=== PATIENT | male | born 1950 | race Caucasian/White ===

== ENCOUNTER 2020-11-02 20:38 | Inpatient (IN) | payer MEDICARE, BC ==
[~2020-11-02] VITALS: Ht 167.6 cm; Wt 69.1 kg
--- NOTE | 2020-11-02 20:40 | NUR ---
Requested security to standby for patient safety due to patient not wanting to stay in bed and anxious and confused. Called Cottage Master for a sitter.
[2020-11-02] MEDS ORDERED: ZIPRASIDONE MESYLATE 20 MG VIAL IM ONE ×3 (21:45→22:01)
--- NOTE | 2020-11-02 22:00 | NUR ---
ERMD will not medically clear the patient, patient needs to be admitted to the medical floor for further observation. Raphael Perez NP agrees with plan for admission rather to MHU at this point in time.
[2020-11-02] MEDS ORDERED: ONDANSETRON 4 MG/2 ML VIAL IV PRN (22:45)
[2020-11-02] MEDS ORDERED: MAGNESIUM HYDROXIDE 30 ML LIQUID UDC PO PRN (22:45)
[2020-11-02] MEDS ORDERED: HYDROCODONE/APAP 5-325MG TABLET PO PRN (22:45)
[2020-11-02] MEDS ORDERED: ACETAMINOPHEN 325 MG TABLET PO PRN (22:45)
--- NOTE | 2020-11-02 23:25 | NUR ---
Patient transported to CT in stable condition.
--- NOTE | 2020-11-03 00:40 | NUR ---
Report given to LAUREL Owusu
[2020-11-03 00:51] LABS: BASOPHILS # (AUTO) 0.1 K/uL (0.0-8.0); EOSINOPHILS # (AUTO) 0.1 K/uL (0.0-0.7); EOSINOPHILS % (AUTO) 1.3 % (0.0-7.0); HEMATOCRIT 43.5 % (36.7-47.1); HEMOGLOBIN 14.9 g/dL (12.5-16.3); LYMPHOCYTES # (AUTO) 1.4 K/uL (20.0-40.0); LYMPHOCYTES % (AUTO) 22.6 % (20.5-51.5); MEAN CORPUSCULAR HEMOGLOBIN 32.4 uug (23.8-33.4); MEAN CORPUSCULAR HGB CONC 34 g/dL (32.5-36.3); MEAN CORPUSCULAR VOLUME 94.5 fL (73.0-96.2); MONOCYTES # (AUTO) 0.5 K/uL (2.0-10.0); NEUTROPHILS % (AUTO) 66.1 % (38.5-71.5); PLATELET COUNT (AUTO) 102 K/uL (152-348); WHITE BLOOD COUNT (AUTO) 6.1 K/uL (3.6-10.2)
[2020-11-03 00:59] LABS: CREATININE 1.1 mg/dL (0.6-1.3); POTASSIUM 4.1 mmol/L (3.5-5.1)
[2020-11-03 01:07] LABS: BILIRUBIN,DIRECT 0.2 mg/dL (0.0-0.2); BILIRUBIN,TOTAL 0.8 mg/dL (0.2-1.0); TOTAL PROTEIN, SERUM 7.6 g/dL (6.4-8.2)
--- NOTE | 2020-11-03 01:10 | NUR ---
Patient transported to TELE in stable condition.
[2020-11-03 02:09] VITALS: BP 129/72
[2020-11-03] MEDS ORDERED: HALOPERIDOL LACTATE 5 MG/1 ML VIAL IM ONE (02:15)
--- NOTE | 2020-11-03 03:35 | NUR ---
Pt arrived on unit at 0100H. Pt is very confused and does not know where he is at this time. Denies pain or SOB. Placed on Tele and is SR. Pt became very agitated and tried to leave. Also attempted to hit staff members, deescalation and redirection attempted and patient continued to be increasingly agitated. Remigio Coon was called at 0135H. Randall Joseph was notified at 0145H. Orders to give Haldol 10mg IM X one and to call crisis team for evaluation. Crisis team was called at 0200H and message was left. Pt was provided with medication education. Administered Haldol 10mg IM at 0208H without resistance and security at bedside. Patient was monitored in the room for 25 min and tolerated medication well and is now resting in bed. Pt is SR on monitor at 65 BPM. No SOB or distress noted. Sitter at bedside monitoring for safety. Crisis team returned call and stated that they will perform an evaluation in the morning. Will endorse to oncoming staff.
[2020-11-03 06:40] LABS: BASOPHILS # (AUTO) 0.1 K/uL (0.0-8.0); BASOPHILS % (AUTO) 2.4 % (0.0-2.0); EOSINOPHILS # (AUTO) 0.1 K/uL (0.0-0.7); EOSINOPHILS % (AUTO) 1.6 % (0.0-7.0); HEMATOCRIT 40.1 % (36.7-47.1); HEMOGLOBIN 13.7 g/dL (12.5-16.3); LYMPHOCYTES % (AUTO) 21.4 % (20.5-51.5); MEAN CORPUSCULAR HEMOGLOBIN 32.2 uug (23.8-33.4); MEAN CORPUSCULAR HGB CONC 34 g/dL (32.5-36.3); MEAN CORPUSCULAR VOLUME 94.5 fL (73.0-96.2); MONOCYTES # (AUTO) 0.4 K/uL (2.0-10.0); MONOCYTES % (AUTO) 8.1 % (0.0-11.0); NEUTROPHILS % (AUTO) 66.5 % (38.5-71.5); RED BLOOD CELL COUNT(AUTO) 4.25 MIL/uL (4.06-5.63)
[2020-11-03 07:02] LABS: BILIRUBIN,TOTAL 0.8 mg/dL (0.2-1.0); CREATININE 1.1 mg/dL (0.6-1.3); MAGNESIUM 1.9 mg/dL (1.8-2.4); PHOSPHOROUS 4.2 mg/dL (2.5-4.9); POTASSIUM 4.5 mmol/L (3.5-5.1); TOTAL PROTEIN, SERUM 6.9 g/dL (6.4-8.2)
[2020-11-03 07:12] LABS: PLATELET COUNT (AUTO) 174 K/uL (152-348); WHITE BLOOD COUNT (AUTO) 4.5 K/uL (3.6-10.2)
[2020-11-03 07:19] LABS: THYROID STIMULATING HORMONE 2.56 mIU/mL (0.358-3.740)
[2020-11-03 08:00] VITALS: BP 131/78
--- NOTE | 2020-11-03 08:00 | NUR ---
RECEIVED PATIENT IN ROOM PACING BACK AND FORTH ALERT TO SELF ONLY BUT IS CONFUSED AND DISORIENTED HAS A ONE ON ONE SITTER FOR SAFETY ALL NEEDS ANTICIPATED AND SATISFIED AWAITING FOR THE CRISIS TEAM AT THIS TIME.
--- NOTE | 2020-11-03 10:12 | NUR ---
PSYCH CONSULT ORDERED PER LEANN CALLED AND NOTIFIED DR SANZ VIA VOICE MAIL AND SENT A FACE SHEET TO U
[2020-11-03 13:17] VITALS: BP 116/71
--- NOTE | 2020-11-03 14:19 | NUR ---
PATIENT SEEN AND EXAMINED BY DR THACKER WITH NEW ORDERS AND NOTED
--- NOTE | 2020-11-03 14:50 | NUR ---
PATIENT IS VERY CONFUSED AND DISORIENTED PICKED UP BY CHAIR TO RADIOLOGY FOR CT HEAD ORDERED
--- NOTE | 2020-11-03 15:20 | NUR ---
PATIENT IS VERY AGITATED CONFUSED DISORIENTED PACING REFUSING TO GO BACK TO HIS ROOM UNABLE TO BE REDIRECTED VERY DISORGANISED AND UNMANAGEABLE CALLED DR SANZ LEFT A MESSAGE CALLED LEANN AND GOT AN ORDER FOR ZYPREXA ONE TIME GIVEN ORDERED WILL CONTINUE TO OBSERVE.
--- NOTE | 2020-11-03 15:47 | NUR ---
Wet Finisher Wool consultation requested to assist with identifying next of kin. Patient is a 70 year old male, who came to the ED on 11/03/20. Patient is from [facility]. LEANDER contacted Karen, Printing Engineer at [facility], [facility] [address], [place] [address], tel # ; pierre # . Karen stated that both the patient and patient's moved into [facility] about 10 days ago. Per Karen's report, patient and were previously living at their private home, and had a long history of alcohol abuse, drinking 3 bottles of wine per day, sometimes other alcohol too. Karen stated that patient has not been able to drink alcohol for the past 10 days since being admitted to [facility]. Per Karen, patient also has a dx of Dementia. Per Karen, patient became very aggressive at [facility], kicking, screaming, throwing chairs, biting, wanting to harm others, grabbing the fire extinguisher. Karen stated that after 45 minutes of not being able to control patient's behavior, the police were called. Patient's next of kin, POA, is patient's step-daughter Rosalinda Llanos, . Karen emailed patient's healthcare directive to this SW, which identified Rosalinda as the POA. LEANDER called patient's step-daughter Rosalinda and spoke with her. Rosalinda stated that patient has been showing behavioral changes related to Dementia over the past year, some more aggressive and others. Rosalinda visited the patient and 2-3 x week, and provided them with assistance, as needed. Rosalinda stated that patient has a long history of alcohol use, drinking a bottle of wine per day, along with scotch. However, Rosalinda stated that over the last couple of months, patient had cut back on drinking alcohol and was having 2-3 glasses of wine per day. Patient is a retired civil attorney. LEANDER spoke with patient's attending physician Michael about above. LEANDER filed patient's healthcare directive in patient's chart. Addendum: 11/03/20 at 1634 by LORENE TABOR Per Karen at [facility], they are willing to take the patient back at [facility] after hospitalization.
--- NOTE | 2020-11-03 16:34 | NUR ---
LEANDER spoke with LAUREL Swanson, and informed her of patient's history that this SW had gathered from patient's step-daughter Rosalinda and [place] Meat Apprentice Karen. LEANDER informed Kiki that Rosalinda is POA. Kiki stated that she would contact patient's daughter Rosalinda to provide updates on the patient.
[2020-11-03] MEDS ORDERED: OLANZAPINE 10 MG VIAL IM ONE (17:15)
--- NOTE | 2020-11-03 17:23 | NUR ---
ERROR IN CHARTINE THE ZYPREXA WAS GIVEN AT 1720
--- NOTE | 2020-11-03 18:00 | NUR ---
CALLED AND SPOKE WITH PATIENTS GRAND DAUGHTER YUE REQUESTED BY LORENE THE ANTENNA RIGGER AND NOTIFIED HER OF PATIENTS CONDITION HE REMAINS CONFUSED DIFFICULT TO REDIRECT HALLUCINATING LOOKING FOR HIS WILL NOT SIT STILL VERT IRRITABLE HAS A ONE ON ONE SITTER FOR SAFETY WILL CONTINUE TO OBSERVE AND PROVIDE SAFE AND THERAPEUTIC ENVIRONMENT AT ALL TIMES.
--- NOTE | 2020-11-03 18:44 | NUR ---
FOLLOW UP CALL TO DR SANZ PSYCH LEFT HIM A MESSAGE ON HIS VOICE MAIL RE PATIENT IS STILL AGITATED AND DIFFICULT TO REDIRECT ZYPREXA NOT EFFECTIVE ORDERED AWAITING FOR RETURN CALL
[2020-11-04 06:21] VITALS: BP 123/62
[2020-11-04 06:27] LABS: BASOPHILS # (AUTO) 0.1 K/uL (0.0-8.0); BASOPHILS % (AUTO) 1.2 % (0.0-2.0); EOSINOPHILS # (AUTO) 0.1 K/uL (0.0-0.7); EOSINOPHILS % (AUTO) 1.6 % (0.0-7.0); HEMATOCRIT 42.5 % (36.7-47.1); HEMOGLOBIN 14.2 g/dL (12.5-16.3); LYMPHOCYTES # (AUTO) 1.6 K/uL (20.0-40.0); LYMPHOCYTES % (AUTO) 32.8 % (20.5-51.5); MEAN CORPUSCULAR HEMOGLOBIN 31.7 uug (23.8-33.4); MEAN CORPUSCULAR HGB CONC 34 g/dL (32.5-36.3); MEAN CORPUSCULAR VOLUME 94.6 fL (73.0-96.2); MONOCYTES # (AUTO) 0.4 K/uL (2.0-10.0); NEUTROPHILS # (AUTO) 2.7 K/uL (1.8-8.9); NEUTROPHILS % (AUTO) 55.4 % (38.5-71.5); PLATELET COUNT (AUTO) 184 K/uL (152-348); RED BLOOD CELL COUNT(AUTO) 4.49 MIL/uL (4.06-5.63)
--- NOTE | 2020-11-04 06:28 | NUR ---
Pt slept intermittently throughout the night. Denies pain or SOB. Does not appear to be in distress at this time. Pt refused vitals at 0800H on 11/03/20 and at 0000H on 11/04/20. Pt let sitter take vitals this morning, all WNL. Pt refused tele monitor. No other issues or concerns at this time, will endorse to day shift.
[2020-11-04 06:40] LABS: CREATININE 1.1 mg/dL (0.6-1.3); POTASSIUM 3.8 mmol/L (3.5-5.1)
[2020-11-04 07:59] VITALS: BP 104/63
--- NOTE | 2020-11-04 08:00 | NUR ---
AWAKE ALERT AND VERBALLY RESPONSIVE BUT CONFUSED X3 SITTER AT BEDSIDE
[2020-11-04] MEDS: OLANZAPINE ZYDIS 5 MG TAB.RAPDIS PO SCH ×2 (08:21→20:26)
[2020-11-04] MEDS: DIVALPROEX SPRINKLE 125 MG CAP.SPRINK PO SCH ×3 (08:21→17:31)
[2020-11-04 11:28] VITALS: BP 117/75
--- NOTE | 2020-11-04 13:10 | NUR ---
AWAITING EEG PROCEDURE, REMAINS CONFUSED AND DISORIENTED, CONTINUE 1:1 SITTER FOR SAFETY
[2020-11-04 14:24] VITALS: BP 123/73
[2020-11-04 19:59] VITALS: BP 123/69
[2020-11-04 20:00] VITALS: BP 111/67
[2020-11-05] VITALS: BP 135/72
[2020-11-05 04:00] VITALS: BP 132/69
--- NOTE | 2020-11-05 06:34 | NUR ---
Pt did not sleep much at night. Kept pacing around room. Urged patient to try to rest, finally got him in bed. Denies pain or SOB. Pt very confused and unable to be redirected. Sitter at bedside. Pt is not combative or agitated, very calm. No other issues or concerns at this time, will endorse to day shift.
[2020-11-05 06:43] LABS: BASOPHILS # (AUTO) 0.1 K/uL (0.0-8.0); EOSINOPHILS # (AUTO) 0.1 K/uL (0.0-0.7); EOSINOPHILS % (AUTO) 1.4 % (0.0-7.0); HEMATOCRIT 38.9 % (36.7-47.1); HEMOGLOBIN 13.1 g/dL (12.5-16.3); LYMPHOCYTES # (AUTO) 1.4 K/uL (20.0-40.0); LYMPHOCYTES % (AUTO) 25.6 % (20.5-51.5); MEAN CORPUSCULAR HEMOGLOBIN 31.7 uug (23.8-33.4); MEAN CORPUSCULAR HGB CONC 34 g/dL (32.5-36.3); MEAN CORPUSCULAR VOLUME 94.2 fL (73.0-96.2); MONOCYTES # (AUTO) 0.5 K/uL (2.0-10.0); MONOCYTES % (AUTO) 9.6 % (0.0-11.0); NEUTROPHILS # (AUTO) 3.4 K/uL (1.8-8.9); NEUTROPHILS % (AUTO) 62.4 % (38.5-71.5); PLATELET COUNT (AUTO) 159 K/uL (152-348); RED BLOOD CELL COUNT(AUTO) 4.13 MIL/uL (4.06-5.63); WHITE BLOOD COUNT (AUTO) 5.4 K/uL (3.6-10.2)
[2020-11-05 07:28] LABS: MAGNESIUM 1.9 mg/dL (1.8-2.4)
--- NOTE | 2020-11-05 07:45 | NUR ---
Patient report received from shift commander. Pt is seen walking around with CAN COVERER. Alert and oriented x 1 to person. Patient confused about place and time. Pt is sinus rhythm on TELE. Room air, no shortness of breath reported. Skin intact. Patient continent for GI/. Able to ambulate. Patient has an IV on Right hand 20g saline lock. Patient is 1 to 1. Bed in low and locked position. Safety precautions in place. Call light within reach.
[2020-11-05] MEDS: OLANZAPINE ZYDIS 5 MG TAB.RAPDIS PO SCH ×2 (08:02→20:26)
[2020-11-05] MEDS: DIVALPROEX SPRINKLE 125 MG CAP.SPRINK PO SCH ×3 (08:02→17:49)
[2020-11-05 11:16] VITALS: BP 110/70
[2020-11-05 16:01] VITALS: BP 123/66
[2020-11-05] MEDS ORDERED: OLANZAPINE 10 MG VIAL IM ONE (16:45)
[2020-11-05 20:00] VITALS: BP 111/67
--- NOTE | 2020-11-05 21:50 | NUR ---
Received patient in their room agitated and yelling at staff. Patient is confused and alert only to self. Pt on RA, no s/s of SOB. Patient compliant with medications and appears to be more calm walking around the halls with standby assistance, steady gait. 1:1 sitter at bedside for safety. Patient to be discharged from Telemetry and admitted to Mental health unit. Safety measures in place.
== END 2020-11-05 23:12 | DRG 85 ==
LOC: ER 20:44 → TELE3 11-03 00:46
PROVIDERS: ADMIT Nurse Practitioner Acute Care; ATTEND Nurse Practitioner Family
DX: S06.5X0A Traumatic subdural hemorrhage without loss of consciousness, initial encounter (principal); G93.41 Metabolic encephalopathy; D68.69 Other thrombophilia; F03.91 Unspecified dementia, unspecified severity, with behavioral disturbance; Z74.09 Other reduced mobility; F39 Unspecified mood [affective] disorder; R73.9 Hyperglycemia, unspecified; F29 Unspecified psychosis not due to a substance or known physiological condition; W19.XXXA Unspecified fall, initial encounter; Y93.9 Activity, unspecified; Y92.89 Other specified places as the place of occurrence of the external cause; R40.2142 Coma scale, eyes open, spontaneous, at arrival to emergency department; R40.2362 Coma scale, best motor response, obeys commands, at arrival to emergency department; R40.2242 Coma scale, best verbal response, confused conversation, at arrival to emergency department
CPT/HCPCS: 36415; 70030-TC; 70450; 71045; 83735; 84100; 84443; 85025; 85730; 93005; 95819; A4663; G0378; J1630; J2358; J3486

== ENCOUNTER 2020-11-05 23:25 | Inpatient (IN) | payer MEDICARE, BC ==
[~2020-11-05] VITALS: Ht 165.1 cm; Wt 68.0 kg
[2020-11-05 20:00] VITALS: BP 111/67
[2020-11-06] MEDS ORDERED: ACETAMINOPHEN 325 MG TABLET PO PRN
[2020-11-06] MEDS ORDERED: MAGNESIUM HYDROXIDE 30 ML LIQUID UDC PO PRN
[2020-11-06] MEDS ORDERED: MAG HYDROX/AL HYDROX/SIMETH 30 ML LIQUID UDC PO PRN
--- NOTE | 2020-11-06 06:53 | NUR ---
Received patient from telemetry unit to transfer to [facility]. Patient in room with 1:1 sitter at bedside. Patient slept 7 hours last night. Agitated and combative when redirected. Patient remains confused and disoriented. Refused vitals and care provided. Q15 min safety checks in place. Safety measures in place and will endorse to oncoming shift.
--- NOTE | 2020-11-06 09:22 | NUR ---
Firearms Report: Burner Technician completed and submitted a [employer] firearms report for 5150 grave disability certification. A copy of report has been placed in patient chart.
--- NOTE | 2020-11-06 11:50 | NUR ---
[facility] Contact: Patient currently resides at [facility] [address],([phone]). This SW contactd admin Karen ([phone]) to discuss if patient can come back upon discharge. Per admin Karen, she stated that patient is welcomed back upon discharge and they will provide transportation.
--- NOTE | 2020-11-06 11:50 | NUR ---
SW Initial Discharge Note: Patient currently resides at [facility] [address],([phone]). This SW contactd admin Karen ([phone]) to discuss if patient can come back upon discharge. Per admin Karen, she stated that patient is welcomed back upon discharge and they will provide transportation. This SW contacted patient's stepdaughter Rosalinda ([phone]) to discuss treatment and discharge plan, however, she was unavailable and this SW left a voicemail. This SW will work with the treatment team, MD, and family to help coordinate proper discharge.
--- NOTE | 2020-11-06 11:51 | NUR ---
SW Family Contact: This SW contacted patient's stepdaughter Rosalinda ([phone]) to discuss treatment and discharge plan, however, she was unavailable.
--- NOTE | 2020-11-06 11:52 | NUR ---
Substance Abuse Intervention: Patient was provided with a brief substance abuse intervention and referred to [facility] ([phone]), [facility] ([phone]), and [facility] ([phone]).
--- NOTE | 2020-11-06 13:36 | NUR ---
SW Family Contact: This SW spoke with patient's DPOA Rosalinda ([phone]) to gather collateral and discuss treatment/discharge plan. She stated that she is the DPOA and requested for this SW to contact [facility] to fax DPOA documents. Per Rosalinda, she stated that she would want patient back to [facility] upon discharge.
--- NOTE | 2020-11-06 13:37 | NUR ---
[facility] Care [facility] Contact: This SW contacted Admin Karen ([phone]) [facility] and left a voicemail to fax DPOA paperworks to this SW.
--- NOTE | 2020-11-06 13:42 | NUR ---
Individual Therapy: linen room worker met with patient for brief counseling to help address patient's presenting problem disorganized thought content. Patient appeared disorganized, disoriented, and confused. He did not know why he was brought to the hospital. Patient unable to have a meaningful conversation due to confusion. SW unable to conduct therapy at this time.
--- NOTE | 2020-11-06 14:34 | NUR ---
Patient transferred from [facility] to U. Patient AOx1. On room air. no signs of acute distress. Chart and belongings transferred with patient to MHU. Patient report given to MHU RN for continuity of care.
--- NOTE | 2020-11-06 14:40 | NUR ---
Pt recieved from 3rd floor OF via wheelchair. Pt is oriented to self only. Pt's belongings and valuables were accounted, contraband locked. No distress noted.
[2020-11-06 16:00] VITALS: BP 105/63
[2020-11-06 20:37] VITALS: BP 112/62
[2020-11-06] MEDS: RIVASTIGMINE TARTRATE 1.5 MG CAPSULE PO SCH (20:55)
[2020-11-06] MEDS: DIVALPROEX 250 MG TABLET.DR PO SCH (20:55)
[2020-11-06] MEDS: LORAZEPAM 1 MG TABLET PO PRN (20:55)
--- NOTE | 2020-11-06 22:12 | NUR ---
RECEIVED PATIENT IN HIS ROOM CONFUSED, DISORIENTED AND OCCASIONALLY PICKING HIS ROOM MATES SHIRTS AND OTHER STUFF FROM OFF HIS TABLE. MOOD IS LABILE AND COULD NOT ENGAGE IN ANY MEANINGFUL CONVERSATION. HE WAS HOWEVER COMPLIANT WITH MEDICATIONS AND CARE. VISUAL CHECKS MADE ON HIM FOR SAFETY. WILL CONTINUE TO MONITOR.
--- NOTE | 2020-11-07 06:58 | NUR ---
SLEPT FOR 7:30 HOURS.
[2020-11-07 07:30] VITALS: BP 124/75
--- NOTE | 2020-11-07 08:18 | NUR ---
[facility] Contact: This SW contacted Admin Karen ([phone]) [facility] faxed this SW daughter's DPOA paperworks and this SW placed it in patient's chart.
[2020-11-07] MEDS: RIVASTIGMINE TARTRATE 1.5 MG CAPSULE PO SCH ×2 (08:27→20:05)
[2020-11-07] MEDS: DIVALPROEX 250 MG TABLET.DR PO SCH ×2 (08:27→20:05)
--- NOTE | 2020-11-07 13:12 | NUR ---
Individual Therapy: automotive tire worker met with patient for brief counseling to help address patient's presenting problem disorganized thought content. Patient appeared confused and SW unable to conduct therapy at this time.
[2020-11-07 16:46] VITALS: BP 105/67
[2020-11-07 20:25] VITALS: BP 127/71
[2020-11-08] MEDS: TEMAZEPAM 7.5 MG CAPSULE PO PRN (00:45)
--- NOTE | 2020-11-08 05:15 | NUR ---
Pt asleep at this time, no s/sx of distress. No c/o pain. Restoril PRN administered at 0045 for difficulty sleeping--walking back and forth in his room and in the hallway. Pt fell asleep about 1.5 hrs later. Encouraged to stay in bed and redirected as needed. Safety precautions in place. Frequent rounds done to ensure safety.
[2020-11-08 07:30] VITALS: BP 116/77
[2020-11-08] MEDS: RIVASTIGMINE TARTRATE 1.5 MG CAPSULE PO SCH ×2 (09:01→20:44)
[2020-11-08] MEDS: DIVALPROEX 250 MG TABLET.DR PO SCH ×2 (09:01→20:43)
[2020-11-08] MEDS: LORAZEPAM 1 MG TABLET PO PRN (13:00)
[2020-11-08 16:00] VITALS: BP 139/72
[2020-11-09] MEDS: TEMAZEPAM 7.5 MG CAPSULE PO PRN (02:13)
--- NOTE | 2020-11-09 06:29 | NUR ---
Received patient pacing up and down the hallway, then standing at the nurses station, totally lost and confused. Despite multiple attempts to provide reorientation, the patient was unable to understand. PM medications given without difficulty , and he was somewhat redirectable at times. This patient was restless during the night and had 5.15 hours of interrupted sleep. No hostility or combativeness noted during the shift, and no behavior escalation. Continuing to provide assistance when needed and to monitor for safety.
[2020-11-09 07:30] VITALS: BP 120/76
[2020-11-09] MEDS: DIVALPROEX 250 MG TABLET.DR PO SCH ×2 (08:40→20:09)
[2020-11-09] MEDS: RIVASTIGMINE TARTRATE 1.5 MG CAPSULE PO SCH ×2 (08:40→20:09)
[2020-11-09] MEDS: LORAZEPAM 1 MG TABLET PO PRN ×2 (15:03→23:33)
[2020-11-09 16:00] VITALS: BP 101/63
[2020-11-09 20:17] VITALS: BP 116/56
[2020-11-09] MEDS: ATORVASTATIN 10 MG TABLET PO SCH (20:40)
--- NOTE | 2020-11-10 06:33 | NUR ---
GPS:PATIENT REMAIN IN CONFUSED, DISORIENTED AND OCCASIONALLY PICKING TRASH BAG AND OTHER STUFF FROM HIS ROOM. MOOD IS LABILE AND COULD NOT ENGAGE IN ANY MEANINGFUL CONVERSATION. HE WAS HOWEVER COMPLIANT WITH MEDICATIONS AND CARE.TOOK SHOWER THIS MORNING. VISUAL CHECKS MADE ON HIM FOR SAFETY. SLEPT 4.30 HRS THROUGH THE NIGHT.WILL CONTINUE TO MONITOR.
[2020-11-10 07:30] VITALS: BP 131/67
[2020-11-10 07:32] LABS: BASOPHILS # (AUTO) 0.1 K/uL (0.0-8.0); BASOPHILS % (AUTO) 1.1 % (0.0-2.0); EOSINOPHILS # (AUTO) 0.1 K/uL (0.0-0.7); EOSINOPHILS % (AUTO) 1.4 % (0.0-7.0); HEMATOCRIT 37.7 % (36.7-47.1); HEMOGLOBIN 12.9 g/dL (12.5-16.3); LYMPHOCYTES # (AUTO) 1.1 K/uL (20.0-40.0); LYMPHOCYTES % (AUTO) 23.8 % (20.5-51.5); MEAN CORPUSCULAR HEMOGLOBIN 32.3 uug (23.8-33.4); MEAN CORPUSCULAR HGB CONC 34 g/dL (32.5-36.3); MEAN CORPUSCULAR VOLUME 94.5 fL (73.0-96.2); MONOCYTES # (AUTO) 0.4 K/uL (2.0-10.0); MONOCYTES % (AUTO) 8.9 % (0.0-11.0); NEUTROPHILS # (AUTO) 3.1 K/uL (1.8-8.9); NEUTROPHILS % (AUTO) 64.8 % (38.5-71.5); PLATELET COUNT (AUTO) 182 K/uL (152-348); RED BLOOD CELL COUNT(AUTO) 3.99 MIL/uL (4.06-5.63); WHITE BLOOD COUNT (AUTO) 4.8 K/uL (3.6-10.2)
[2020-11-10 08:13] LABS: BILIRUBIN,TOTAL 0.5 mg/dL (0.2-1.0); CREATININE 1.3 mg/dL (0.6-1.3); MAGNESIUM 2.1 mg/dL (1.8-2.4); PHOSPHOROUS 3.8 mg/dL (2.5-4.9); POTASSIUM 4.6 mmol/L (3.5-5.1)
[2020-11-10] MEDS: RIVASTIGMINE TARTRATE 1.5 MG CAPSULE PO SCH ×2 (08:20→20:36)
[2020-11-10] MEDS: DIVALPROEX 250 MG TABLET.DR PO SCH ×2 (08:20→20:36)
--- NOTE | 2020-11-10 12:57 | NUR ---
SW Family: This SW spoke with patient's daughter Rosalinda GABRIEL ([phone]) and wanted update on patient's status. She requested for this SW to contact doctor Garrett to contact her. This SW notified doctor Garrett.
[2020-11-10] MEDS: LORAZEPAM 1 MG TABLET PO PRN ×2 (13:06→17:29)
--- NOTE | 2020-11-10 15:43 | NUR ---
Individual Therapy: facility worker met with patient for brief counseling to help address patient's presenting problem disorganized thought content. Patient appeared confused and disorganized. Patient was unable to have a proper conversation due to confusion. Patient was uncooperative and was giving this SW his blanket. SW unable to conduct therapy at this time.
[2020-11-10 16:02] VITALS: BP 141/72
[2020-11-10 19:55] VITALS: BP 140/82
[2020-11-10] MEDS: ATORVASTATIN 10 MG TABLET PO SCH (20:36)
[2020-11-10] MEDS: QUETIAPINE FUMARATE 25 MG TABLET PO SCH (21:51)
[2020-11-11] MEDS: LORAZEPAM 1 MG TABLET PO PRN (05:14)
--- NOTE | 2020-11-11 06:07 | NUR ---
GPS: Pt.slept for 6.15 last night. Remains confused,disoriented and disorganized. Needs frequent re-direction from staff. Safe environment provided. Ativan 1 mg given PO earlier as ordered for increased anxiety. Safety checks done Q15 minutes as scheduled.
[2020-11-11 07:05] LABS: BASOPHILS % (AUTO) 1.1 % (0.0-2.0); EOSINOPHILS # (AUTO) 0.1 K/uL (0.0-0.7); EOSINOPHILS % (AUTO) 2.3 % (0.0-7.0); HEMATOCRIT 40.4 % (36.7-47.1); HEMOGLOBIN 13.8 g/dL (12.5-16.3); LYMPHOCYTES # (AUTO) 1.3 K/uL (20.0-40.0); LYMPHOCYTES % (AUTO) 30.6 % (20.5-51.5); MEAN CORPUSCULAR HEMOGLOBIN 32.4 uug (23.8-33.4); MEAN CORPUSCULAR HGB CONC 34 g/dL (32.5-36.3); MEAN CORPUSCULAR VOLUME 94.9 fL (73.0-96.2); MONOCYTES # (AUTO) 0.4 K/uL (2.0-10.0); MONOCYTES % (AUTO) 10.6 % (0.0-11.0); NEUTROPHILS # (AUTO) 2.3 K/uL (1.8-8.9); NEUTROPHILS % (AUTO) 55.4 % (38.5-71.5); PLATELET COUNT (AUTO) 187 K/uL (152-348); RED BLOOD CELL COUNT(AUTO) 4.26 MIL/uL (4.06-5.63); WHITE BLOOD COUNT (AUTO) 4.1 K/uL (3.6-10.2)
[2020-11-11 07:18] LABS: BILIRUBIN,TOTAL 0.6 mg/dL (0.2-1.0); CREATININE 1.1 mg/dL (0.6-1.3); MAGNESIUM 2.2 mg/dL (1.8-2.4); PHOSPHOROUS 3.6 mg/dL (2.5-4.9); POTASSIUM 4.1 mmol/L (3.5-5.1); TOTAL PROTEIN, SERUM 7.4 g/dL (6.4-8.2)
[2020-11-11 07:30] VITALS: BP 112/68
[2020-11-11] MEDS: DIVALPROEX 250 MG TABLET.DR PO SCH ×2 (08:02→20:12)
[2020-11-11] MEDS: RIVASTIGMINE TARTRATE 1.5 MG CAPSULE PO SCH ×2 (08:02→20:12)
--- NOTE | 2020-11-11 09:25 | NUR ---
SW Family Contact: This SW conducted a zoom meeting with NERY Tellez ([phone]) and stated pt has a court hearing today. She will be present.
[2020-11-11] MEDS ORDERED: ATOR20TA PO (12:06)
[2020-11-11] MEDS ORDERED: MONT10TA22 PO (12:18)
[2020-11-11] MEDS ORDERED: MEMA10TA PO (12:18)
--- NOTE | 2020-11-11 14:48 | NUR ---
SW Family: This SW spoke with patient's daughter Rosalinda GABRIEL ([phone]) and stated that the court hearing has been rescheduled due to court falling behind with their schedule. She was understanding. This SW stated patient will be discharged 11/14 back to Memory Care Unit.
--- NOTE | 2020-11-11 14:49 | NUR ---
[facility] Contact: This SW contacted Admin Karen ([phone]) [facility] to arrange coordinate for pt for 11/14 discharge. This SW left a voicemail.
[2020-11-11 15:37] VITALS: BP 108/65
[2020-11-11] MEDS: QUETIAPINE FUMARATE 25 MG TABLET PO SCH (20:11)
[2020-11-11] MEDS: ATORVASTATIN 10 MG TABLET PO SCH (20:12)
[2020-11-11 20:16] VITALS: BP 117/58
--- NOTE | 2020-11-12 05:47 | NUR ---
GPS: Pt.slept for 7.15 last night. Got up x1 during the night for toileting purposes. Confused,disoriented with poor insight to present situation. Fall precautions observed. Will continue to re-direct prn.
[2020-11-12 07:30] VITALS: BP 126/75
[2020-11-12] MEDS: DIVALPROEX 250 MG TABLET.DR PO SCH ×2 (09:36→20:06)
[2020-11-12] MEDS: ENSURE ENLIVE (VAN) 240 ML LIQUID PO SCH (09:36)
[2020-11-12] MEDS: RIVASTIGMINE TARTRATE 1.5 MG CAPSULE PO SCH ×2 (09:36→20:06)
--- NOTE | 2020-11-12 09:58 | NUR ---
Received report from JANET Landrum. All questions, comments, and concerns were addressed. Received patient asleep in his assigned bed. Bed is in low and locked position with bed alarm on.
--- NOTE | 2020-11-12 14:12 | NUR ---
SW Family: This SW spoke with patient's daughter Rosalinda GABRIEL ([phone]) and updated on patient's condition and how patient has been doing.
--- NOTE | 2020-11-12 14:13 | NUR ---
[facility] Contact: This SW contacted Admin Karen ([phone]) [facility] to arrange coordinate for pt for 11/14 discharge. This SW left a voicemail.
--- NOTE | 2020-11-12 15:52 | NUR ---
Patient is alert and oriented to name only. He is confused, disoriented, and requires constant redirection and reality orientation. Patient requires prompting and [id number] directions when taking medications or performing self care and ADL's. patient is unable to hold a linear conversation with this customs entry writer, he has a disorganized thought process. Patient is encouraged to participate in the unit groups and therapeutic milieu. patient encouraged to communicate all needs to staff.
[2020-11-12 16:00] VITALS: BP 116/72
[2020-11-12] MEDS: QUETIAPINE FUMARATE 25 MG TABLET PO SCH (20:06)
[2020-11-12] MEDS: ATORVASTATIN 10 MG TABLET PO SCH (20:06)
[2020-11-12 20:39] VITALS: BP 135/65
[2020-11-12] MEDS: TEMAZEPAM 7.5 MG CAPSULE PO PRN (22:42)
[2020-11-13] MEDS: LORAZEPAM 1 MG TABLET PO PRN (01:09)
--- NOTE | 2020-11-13 06:06 | NUR ---
GPS: Pt.now awake at this time. Slept for 4.45 last night. Confused,disoriented and disorganized. Needs constant re-direction due to increased confusion. Reality re-orientation provided prn. Fall precautions observed.
[2020-11-13 07:30] VITALS: BP 109/65
[2020-11-13] MEDS: RIVASTIGMINE TARTRATE 1.5 MG CAPSULE PO SCH ×2 (08:26→21:01)
[2020-11-13] MEDS: DIVALPROEX 250 MG TABLET.DR PO SCH ×2 (08:26→21:01)
[2020-11-13] MEDS: ENSURE ENLIVE (VAN) 240 ML LIQUID PO SCH (08:27)
--- NOTE | 2020-11-13 11:26 | NUR ---
[facility] Contact: This SW contacted Admin Karen ([phone]) [facility] who stated transportation is arranged at 11AM-11:30AM. This SW faxed patient's clinicals ([phone]).
[2020-11-13] MEDS: MEMANTINE HCL 10 MG TABLET PO SCH ×2 (12:39→17:21)
--- NOTE | 2020-11-13 13:19 | NUR ---
LEANDER PC Hearing: Patient had 5250 probable cause hearing today and it was upheld for grave disability.
--- NOTE | 2020-11-13 13:41 | NUR ---
RAPID COVID TEST SENT TO THE LAB ORDERED AND RESULT IS NEGATIVE AT THIS TIME.
--- NOTE | 2020-11-13 15:13 | NUR ---
Individual Therapy: drop worker met with patient for brief counseling to help address patient's presenting problem disorganized thought content. Patient continued to present confused, disorganized, and disoriented. Patient unable to state where he is at. Patient appeared paranoid and delusional and stating about his "grandmother dying". SW actively listened.
--- NOTE | 2020-11-13 16:22 | NUR ---
ASSISTED WITH WALKING WITH SLOW STEADY GAIT HAND HELD PATIENT IS CONFUSED AND DISORIENTED UNABLE TO MAKE SIMPLE NEEDS KNOWN HAS BEEN COMPLIANT WITH MEDICATIONS AND CARE D/C PLANNING FOR TOMORROW.
[2020-11-13 16:40] VITALS: BP 131/70
[2020-11-13] MEDS ORDERED: MONTELUKAST SODIUM 10 MG TABLET PO SCH (18:00)
--- NOTE | 2020-11-13 18:00 | NUR ---
ASSISTED WITH DINNER WITH FAIR APPETITE REMAIN CONFUSED AND DISORIENTED MAX ASSIST FOR ALL ADL WILL CONTINUE TO PROVIDE SAFE AND THERAPEUTIC ENVIRONMENT AT ALL TIMES.
[2020-11-13 20:23] VITALS: BP 117/62
[2020-11-13] MEDS ORDERED: ATORVASTATIN 20 MG TABLET PO SCH (21:00)
[2020-11-13] MEDS: QUETIAPINE FUMARATE 25 MG TABLET PO SCH (21:01)
[2020-11-13] MEDS: TEMAZEPAM 7.5 MG CAPSULE PO PRN (21:46)
[2020-11-14 07:30] VITALS: BP 110/58
--- NOTE | 2020-11-14 07:59 | NUR ---
LEANDER Discharge Note: Patient will be discharged to [facility] [address] [place], ([phone]). [facility] will provide transportation between 11AM-11:30AM. LEANDER contacted admin Karen ([phone]) who stated patient is welcomed back. Patients NERY Tellez ([phone]) is aware and agreeable with discharge. Patient appears alert and oriented x1, unable to provide for care but is willing to go back to [facility]. Patient denies suicidal or homicidal ideation. Patient denies visual/auditory hallucinations. Patient will follow up with (Route Driver Salesperson) Dr. Martínez and (Psychiatrist) Gloria at [facility]. Patient was provided referrals to the following substance abuse programs for substance abuse ([facility]): [facility] Substance Abuse Self-helpline ([phone]); [facility] [address] [place] [address] ([phone]); [place] [address] ([phone]); [facility] ([phone]); [facility] ([phone]); [facility] ([phone]); [facility] ([phone]). Patient presented with euthymic mood and congruent affect.
[2020-11-14] MEDS: MEMANTINE HCL 10 MG TABLET PO SCH (08:21)
[2020-11-14] MEDS: DIVALPROEX 250 MG TABLET.DR PO SCH (08:21)
[2020-11-14] MEDS: RIVASTIGMINE TARTRATE 1.5 MG CAPSULE PO SCH (08:21)
[2020-11-14] MEDS: ENSURE ENLIVE (VAN) 240 ML LIQUID PO SCH (08:22)
--- NOTE | 2020-11-14 11:30 | NUR ---
RECEIVED PATIENT AOX1, CALM COOPERATIVE, PATIENT HAS POOR MEMORY, NEEDED REDIRECTION AND ASSISTANCE WITH HIS ADLS, PATIENT ASSISTED WITH BREAKFAST AND TOOK SHOWER, ASSISTED WITH HIS DISCHARGE PROCESS, DISCHARGE TO [facility] PLANNED, PATIENT WAS NUMBERER AND WIRER BY THE FACILITY, MD AND FAMILY IS AWARE
== END 2020-11-14 12:15 | DRG 885 ==
LOC: UNDOADMIN 23:25 → MEDSURG3 23:25 → GPSOV3 23:26 → GPS 11-06 14:26
PROVIDERS: ADMIT Psychiatry & Neurology Psychiatry; ATTEND Internal Medicine
DX: F29 Unspecified psychosis not due to a substance or known physiological condition (principal); N17.9 Acute kidney failure, unspecified; F03.91 Unspecified dementia, unspecified severity, with behavioral disturbance; F23 Brief psychotic disorder; D68.69 Other thrombophilia; W19.XXXD Unspecified fall, subsequent encounter; Z74.09 Other reduced mobility; Z91.81 History of falling; E78.5 Hyperlipidemia, unspecified; F25.9 Schizoaffective disorder, unspecified; N13.9 Obstructive and reflux uropathy, unspecified; Z20.822 Contact with and (suspected) exposure to COVID-19; S06.5X0D Traumatic subdural hemorrhage without loss of consciousness, subsequent encounter
CPT/HCPCS: 36415; 83735; 84100; 85025; J3490